=== PATIENT | male | born 1990 | race African-American/Black ===

== ENCOUNTER 2017-06-26 07:49 | Inpatient (IN) | payer MEDICAID ==
[2017-06-26] VITALS (7 sets, daily range): BP systolic 106–145; BP diastolic 56–75; PULSE 65–75; RESP 16–18; TEMP 96.7–99.2; O2SAT 98–100
[~2017-06-26] VITALS: Ht 172.7 cm; Wt 72.9 kg
[~2017-06-26 07:49] MED LIST: POLYSOL6 RIGHT EYE
[2017-06-26] MEDS ORDERED: SODIUM CHLOR 0.9% 1000 ML INJ 1,000 ML IV SCH (08:00)
[2017-06-26] MEDS ORDERED: SODIUM CHLORIDE 0.9% FLUSH 5 ML FLUSH IV FLUSH PRN (08:00)
[2017-06-26 08:37] LABS: AUTOMATED NEUTROPHIL # 2.6 TH/MM3 (1.8-7.7); BASOPHIL % 0.8 % (0.0-2.0); EOSINOPHIL # 0.1 TH/MM3 (0-0.4); EOSINOPHIL % 1.8 % (0.0-4.0); HEMATOCRIT 41.5 % (39.0-51.0); HEMO FLAGS DIFF FINAL; LYMPH % 40.5 % (9.0-44.0); LYMPHOCYTE # 2.1 TH/MM3 (1.0-4.8); MEAN CELL VOLUME 87.1 FL (80.0-100.0); MEAN CORPUSCULAR HEMOGLOBIN 28.7 PG (27.0-34.0); MEAN CORPUSCULAR HGB CONC 32.9 % (32.0-36.0); MONO % 6.9 % (0.0-8.0); PLATELET COUNT 197 TH/MM3 (150-450); RED BLOOD COUNT 4.77 MIL/MM3 (4.50-5.90); RED CELL DISTRIBUTION WIDTH 13.3 % (11.6-17.2); WHITE BLOOD COUNT 5.2 TH/MM3 (4.0-11.0)
--- NOTE | 2017-06-26 08:47 | RADRPT ---
EXAM DATE/TIME: 06/26/2017 08:23 [facility] COMPARISON: No previous studies available for comparison. INDICATIONS : Possible seizure today. RADIATION DOSE: 34.48 CTDIvol (mGy) MEDICAL HISTORY : None SURGICAL HISTORY : None. ENCOUNTER: Initial ACUITY: 1 day PAIN SCALE: 0/10 LOCATION: cranial TECHNIQUE: Multiple contiguous axial images were obtained of the head. Using automated exposure control and adj ustment of the mA and/or kV according to patient size, radiation dose was kept as low as reasonably a chievable to obtain optimal diagnostic quality images. DICOM format image data is available electro nically for review and comparison. FINDINGS: CEREBRUM: The ventricles are normal. No evidence of midline shift, mass lesion, hemorrhage or acute infarction . No extra-axial fluid collections are seen. POSTERIOR FOSSA: The cerebellum and brainstem demonstrate no abnormality. The 4th ventricle is midline. The cerebell opontine angle is unremarkable. EXTRACRANIAL: The visualized sinuses are clear. SKULL: The calvaria is intact. No evidence of skull fracture. CONCLUSION: Negative noncontrast head CT. Ramón Mckeon MD on June 26, 2017 at 8:44 Board Certified Radiologist. This report was verified electronically.
[2017-06-26 08:52] LABS: ALT (GPT) 23 U/L (12-78); ANION GAP 8 MEQ/L (5-15); AST (GOT) 33 U/L (15-37); BICARBONATE 27.5 MEQ/L (21.0-32.0); BLOOD UREA NITROGEN 7 MG/DL (7-18); CHLORIDE 105 MEQ/L (98-107); GLOMERULAR FILTRATION RATE 89 ML/MIN (>89); POTASSIUM 3.3 MEQ/L (3.5-5.1); SODIUM (NA) 140 MEQ/L (136-145)
[2017-06-26 08:54] LABS: ALKALINE PHOSPHATASE 46 U/L (45-117); TOTAL BILIRUBIN ADULT 0.8 MG/DL (0.2-1.0)
[2017-06-26] MEDS ORDERED: LORazepam 2 MG/ML VIAL ONE (09:10)
[2017-06-26] MEDS ORDERED: FOSPHENYTOIN INJ 1,500 MGPE in SODIUM CHLORIDE 0.9% INJ 100 ML IV ONE (09:15)
--- NOTE | 2017-06-26 09:43 | PD ---
HPI Chief Complaint: Seizure Time Seen by Provider: 08:00 Travel History International Travel<30 days: No Contact w/Intl Traveler<30days: No Traveled to known affect area: No History of Present Illness HPI This 18-year-old man, no history of any medical problems, presents to the emergency department for witnessed seizure. Bystanders reported to EMS the patient had 2 minute long generalized tonic-clonic shaking. EMS reports patient was postictal on their arrival. Patient alert and oriented now. Denies any history of seizures. Members going to bed last night. Denies any drug use or alcohol use. Patient takes most marijuana but no other drug use. No alcohol use. When sister has trouble with seizures. No history of head injury or neurosurgery. History Past Surgical History Surgical History: No Previous Surgery Social History Alcohol Use: Yes (OCCASIONAL) Tobacco Use: No Allergies-Medications (Allergen,Severity, Reaction): Coded Allergies: No Known Allergies (Unverified , 06/26/17) Reported Meds & Prescriptions Reported Meds & Active Scripts Active No Active Prescriptions or Reported Medications Physical Exam Narrative GENERAL: Well-appearing 26-year-old man, no acute distress. SKIN: Focused skin assessment warm/dry. HEAD: Atraumatic. Normocephalic. EYES: Pupils equal and round. No scleral icterus. No injection or drainage. ENT: No nasal bleeding or discharge. Mucous membranes pink and moist. NECK: Trachea midline. No JVD. CARDIOVASCULAR: Regular rate and rhythm. No murmur appreciated. RESPIRATORY: No accessory muscle use. Clear to auscultation. Breath sounds equal bilaterally. GASTROINTESTINAL: Abdomen soft, non-tender, nondistended. Hepatic and splenic margins not palpable. MUSCULOSKELETAL: No obvious deformities. No clubbing. No cyanosis. No edema. NEUROLOGICAL: Awake and alert. No obvious cranial nerve deficits. Motor grossly within normal limits. Normal speech. PSYCHIATRIC: Appropriate mood and affect; insight and judgment normal. Data Data Last Documented VS Vital Signs Date Time Temp Pulse Resp B/P (MAP) Pulse Ox O2 Delivery O2 Flow Rate FiO2 06/26/17 09:29 73 16 128/64 (85) 98 Room Air 06/26/17 07:56 98.0 Orders Orders Complete Blood Count With Diff (06/26/17 08:00) Comprehensive Metabolic Panel (06/26/17 08:00) Ct Brain W/O Iv Contrast(Rout) (06/26/17 08:00) Blood Glucose (06/26/17 08:00) Ecg Monitoring (06/26/17 08:00) Iv Access Insert/Monitor (06/26/17 08:00) Oximetry (06/26/17 08:00) Sodium Chloride 0.9% Flush (Ns Flush) (06/26/17 08:00) Sodium Chlor 0.9% 1000 Ml Inj (Ns 1000 M (06/26/17 08:00) Lorazepam Inj (Ativan Inj) (06/26/17 09:10) Urinalysis - C+S If Indicated (06/26/17 09:15) Drug Screen, Random Urine (06/26/17:15) Fosphenytoin Inj (Cerebyx Inj) (06/26/17 09:15) Labs Laboratory Tests Test 06/26/17 08:00 White Blood Count 5.2 TH/MM3 Red Blood Count 4.77 MIL/MM3 Hemoglobin 13.7 GM/DL Hematocrit 41.5 % Mean Corpuscular Volume 87.1 FL Mean Corpuscular Hemoglobin 28.7 PG Mean Corpuscular Hemoglobin Concent 32.9 % Red Cell Distribution Width 13.3 % Platelet Count 197 TH/MM3 Mean Platelet Volume 8.9 FL Neutrophils (%) (Auto) 50.0 % Lymphocytes (%) (Auto) 40.5 % Monocytes (%) (Auto) 6.9 % Eosinophils (%) (Auto) 1.8 % Basophils (%) (Auto) 0.8 % Neutrophils # (Auto) 2.6 TH/MM3 Lymphocytes # (Auto) 2.1 TH/MM3 Monocytes # (Auto) 0.4 TH/MM3 Eosinophils # (Auto) 0.1 TH/MM3 Basophils # (Auto) 0.0 TH/MM3 CBC Comment DIFF FINAL Differential Comment Blood Urea Nitrogen 7 MG/DL Creatinine 1.18 MG/DL Random Glucose 100 MG/DL Total Protein 6.9 GM/DL Albumin 3.8 GM/DL Calcium Level 8.1 MG/DL Alkaline Phosphatase 46 U/L Aspartate Amino Transf (AST/SGOT) 33 U/L Alanine Aminotransferase (ALT/SGPT) 23 U/L Total Bilirubin 0.8 MG/DL Sodium Level 140 MEQ/L Potassium Level 3.3 MEQ/L Chloride Level 105 MEQ/L Carbon Dioxide Level 27.5 MEQ/L Anion Gap 8 MEQ/L Estimat Glomerular Filtration Rate 89 ML/MIN [facility] Medical Decision Making Medical Screen Exam Complete: Yes Emergency Medical Condition: Yes Interpretation(s) LABS: CBC unremarkable. CMP unremarkable. CT head negative. Differential Diagnosis Seizure, head injury, bleed, epilepsy, other Narrative Course Medical decision making Is a 26-year-old man who presents to the emergency department with episode of seizure. Initial workups unremarkable. While in the ED he had second seizure lasting about a minute and a half. Twin sister has seizures. He was loaded with fosphenytoin. We'll plan on admission. Diagnosis Primary Impression: Seizure Admitting Information Admitting Physician Requests: Admit Scripts No Active Prescriptions or Reported Meds Ryan Hairston MD Jun 26, 2017 09:43
[2017-06-26] MEDS ORDERED: ONDANSETRON HCL 4 MG/2 ML VIAL IVP PRN (09:45)
[2017-06-26] MEDS ORDERED: NALOXONE HCL 0.4 MG/ML AMP IV PRN (09:45)
[2017-06-26] MEDS ORDERED: LORazepam 2 MG/ML VIAL IV PRN (09:45)
[2017-06-26] MEDS ORDERED: ACETAMINOPHEN 325 MG TAB PO PRN (09:45)
[2017-06-26 09:57] LABS: BLOOD, URINE NEG (NEG); COMMENT (UR) CULT NOT INDICATED; CULTURE IF INDICATED CULT NOT INDICATED; GLUCOSE,URINE NEG (NEG); KETONE, URINE TRACE mg/dL (NEG); MUCUS URINE FEW /lpf (OCC); NITRITE,URINE NEG (NEG); URINE COLOR YELLOW (YELLW/STRAW)
--- NOTE | 2017-06-26 10:42 | HHI.HP ---
[facility] Primary Care Physician Unknown Admission Diagnosis new onset seizures Diagnoses: (1) Seizure Diagnosis: Principal Chief Complaint: Witnessed seziure Travel History International Travel<30 Days: No Contact w/Intl Traveler <30 Da: No Traveled to Known Affected Are: No History of Present Illness Written by Linda Galarza, acting as scribe for Dr. Garsia on 06/26/17 at 10:41. Mr. Brito is a 26-year-old male patient with a no known medical history who presented to the ED with a witnessed seizure. Per records witnesses said it lasted 2 minutes, tonic-clinic in nature and patient presented here in a postictal state. Was given IV Cerebyx and IV Ativan in the ED. Per bedside RN patient supposedly had another witnessed generalized seizure and was administered additional Ativan. Patient seen and examined in ED, lethargic, awakens to voice and falls right back to sleep. Patient is noncompliant with assessment and exam. Poor historian and difficult to obtain any valuable medical history information. Neurology has been consulted and will follow as well. Review of Systems ROS Limitations: Uncooperative Past Family Social History Past Medical History Unable to obtain Past Surgical History Unable to obtain Reported Medications Reported Meds & Active Scripts Active No Active Prescriptions or Reported Medications Allergies: Coded Allergies: No Known Allergies (Unverified , 06/26/17) Active Ordered Medications Current Medications Medications (Trade) Dose Ordered Sig/Nancy Route Start Time Stop Time Status Last Admin (NS Flush) 2 ml UNSCH PRN IV FLUSH 06/26/17 08:00 (Tylenol) 650 mg Q4H PRN PO 06/26/17 09:45 (Zofran Inj) 4 mg Q6H PRN IVP 06/26/17 09:45 (Narcan Inj) 0.4 mg UNSCH PRN IV 06/26/17 09:45 (Ativan Inj) 2 mg UNSCH PRN IV 06/26/17 09:45 (Dilantin) 100 mg Q8H PO 06/26/17 11:00 06/26/17 12:41 Family History Unable to obtain Social History Unable to obtain Physical Exam Vital Signs Vital Signs Date Time Temp Pulse Resp B/P (MAP) Pulse Ox O2 Delivery O2 Flow Rate FiO2 06/26/17 09:29 73 16 128/64 (85) 98 Room Air 06/26/17 08:14 100 06/26/17 07:59 80 100 06/26/17 07:56 98.0 73 18 145/75 (98) 100 Physical Exam GENERAL: This is a well-nourished, well-developed male patient, in no apparent distress, somnolent and uncooperative. Postictal and post Ativan SKIN: No rashes, ecchymoses or lesions. Cool and dry. HEAD: Atraumatic. Normocephalic. EYES: Pupils equal round and reactive. Uncooperative with EOM exam. No scleral icterus. No injection or drainage. ENT: Nose without bleeding. Airway patent. NECK: Trachea midline. No JVD. Supple. CARDIOVASCULAR: Regular rate and rhythm without murmurs, gallops, or rubs. RESPIRATORY: Clear to auscultation. Breath sounds equal bilaterally. No wheezes , rales, or rhonchi. GASTROINTESTINAL: Abdomen soft, non-tender, nondistended. No guarding. MUSCULOSKELETAL: Extremities without clubbing, cyanosis, or edema. No joint tenderness, effusion, or edema noted. NEUROLOGICAL: Somnolent. Motor and sensory grossly within normal limits. Five out of 5 muscle strength in all muscle groups. Laboratory Laboratory Tests Test 06/26/17 08:00 06/26/17 09:30 White Blood Count 5.2 Red Blood Count 4.77 Hemoglobin 13.7 Hematocrit 41.5 Mean Corpuscular Volume 87.1 Mean Corpuscular Hemoglobin 28.7 Mean Corpuscular Hemoglobin Concent 32.9 Red Cell Distribution Width 13.3 Platelet Count 197 Mean Platelet Volume 8.9 Neutrophils (%) (Auto) 50.0 Lymphocytes (%) (Auto) 40.5 Monocytes (%) (Auto) 6.9 Eosinophils (%) (Auto) 1.8 Basophils (%) (Auto) 0.8 Neutrophils # (Auto) 2.6 Lymphocytes # (Auto) 2.1 Monocytes # (Auto) 0.4 Eosinophils # (Auto) 0.1 Basophils # (Auto) 0.0 CBC Comment DIFF FINAL Differential Comment Blood Urea Nitrogen 7 Creatinine 1.18 Random Glucose 100 Total Protein 6.9 Albumin 3.8 Calcium Level 8.1 Alkaline Phosphatase 46 Aspartate Amino Transf (AST/SGOT) 33 Alanine Aminotransferase (ALT/SGPT) 23 Total Bilirubin 0.8 Sodium Level 140 Potassium Level 3.3 Chloride Level 105 Carbon Dioxide Level 27.5 Anion Gap 8 Estimat Glomerular Filtration Rate 89 Urine Color YELLOW Urine Turbidity CLEAR Urine pH 6.0 Urine Specific [place] 1.011 Urine Protein NEG Urine Glucose (UA) NEG Urine Ketones TRACE Urine Occult Blood NEG Urine Nitrite NEG Urine Bilirubin NEG Urine Urobilinogen LESS THAN 2.0 Urine Leukocyte Esterase NEG Urine RBC LESS THAN 1 Urine WBC LESS THAN 1 Urine Mucus FEW Microscopic Urinalysis Comment CULT NOT INDICATED Urine Opiates Screen NEG Urine Barbiturates Screen NEG Urine Amphetamines Screen NEG Urine Benzodiazepines Screen NEG Urine Cocaine Screen NEG Urine Cannabinoids Screen POS Result Diagram: 06/26/17 0800 06/26/17 0800 Imaging Last Impressions Head CT 06/26/17 0800 Signed Impressions: Service Date/Time: Monday, June 26, 2017 08:23 - CONCLUSION: Negative noncontrast head CT. Ramón Mckeon MD Brain MRI 06/26/17 0000 Signed Impressions: Service Date/Time: Monday, June 26, 2017 11:27 - CONCLUSION: Examination quality is severely degraded by motion artifact. No acute finding is identified and there is no abnormality to explain the patient's seizures. If condition persists, suggest followup imaging when patient is better able to cooperate with the exam. MD Radha Ching VTE Risk Assessment Udayrini VTE Risk Assessment: No/Low Risk (score <= 1) Caprini Risk Assessment Model Point Value = 1 Point Value = 2 Point Value = 3 Point Value = 5 Age 41-60 Minor surgery BMI > 25 kg/m2 Swollen legs Varicose veins or History of unexplained or recurrent spontaneous Oral contraceptives or hormone replacement Sepsis (< 1 month) Serious lung disease, including pneumonia (< 1 month) Abnormal pulmonary function Acute myocardial infarction Congestive heart failure (< 1 month) History of inflammatory bowel disease Medical patient at bed rest Age 61-74 Arthroscopic surgery Major open surgery (> 45 min) Laparoscopic surgery (> 45 min) Malignancy Confined to bed (> 72 hours) Immobilizing plaster cast Central venous access Age >= 75 History of VTE Family history of VTE Factor V Leiden Prothrombin [id number] Lupus anticoagulant Anticardiolipin antibodies Elevated serum homocysteine Heparin-induced thrombocytopenia Other congenital or acquired thrombophilia Stroke (< 1 month) Elective arthroplasty Hip, pelvis, or leg fracture Acute spinal cord injury (< 1 month) Prophylaxis Regimen Total Risk Factor Score Risk Level Prophylaxis Regimen 0-1 Low Early ambulation 2 Moderate Order ONE of the following: *Sequential Compression Device (SCD) *Heparin 5000 units SQ BID 3-4 Higher Order ONE of the following medications: *Heparin 5000 units SQ TID *Enoxaparin/Lovenox 40 mg SQ daily (WT < 150 kg, CrCl > 30 mL/min) *Enoxaparin/Lovenox 30 mg SQ daily (WT < 150 kg, CrCl > 10-29 mL/min) *Enoxaparin/Lovenox 30 mg SQ BID (WT < 150 kg, CrCl > 30 mL/min) AND/OR *Sequential Compression Device (SCD) 5 or more Highest Order ONE of the following medications: *Heparin 5000 units SQ TID (Preferred with Epidurals) *Enoxaparin/Lovenox 40 mg SQ daily (WT < 150 kg, CrCl > 30 mL/min) *Enoxaparin/Lovenox 30 mg SQ daily (WT < 150 kg, CrCl > 10-29 mL/min) *Enoxaparin/Lovenox 30 mg SQ BID (WT < 150 kg, CrCl > 30 mL/min) AND *Sequential Compression Device (SCD) Assessment and Plan Assessment and Plan Mr. Brito is a 26-year-old male patient with a no known medical history who presented to the ED with a witnessed seizure. Per records witnesses said it lasted 2 minutes, tonic-clinic in nature and patient presented here in a postictal state. New onset Seizure, multiple episodes risk for status epilepticus. - Head CT reviewed and negative. MRI brain reviewed showing no acute abnormality. - Neurology consulted and has seen patient, appreciate input and recommendations. EEG ordered, follow. Will check magnesium level, WNL. Started patient on Dilantin 100 mg PO q8hr. - Ativan IV PRN for seizure. Cerebyx IV and Ativan IV given in ED. - Seizure precautions. - Continue neuro checks. Hypokalemia: K 3.3 Will replace. BMP in am, follow. DVT Prophylaxis: SCDs. Discussed Condition With This note was transcribed by beth [Linda will obtain]. I, Dr. Edgar Garsia personally performed the history, physical exam, and medical decision making; and confirmed the accuracy of the information in the transcribed note. Authenticated by Dr. Edgar Garsia on 06/26/17 at 10:47. Physician Certification 2 Midnight Certification Type: Admission for Inpatient Services Order for Inpatient Services The services are ordered in accordance with Medicare regulations or non- Medicare payer requirements, as applicable. In the case of services not specified as inpatient-only, they are appropriately provided as inpatient services in accordance with the 2-midnight benchmark. Estimated LOS (days): 2 2 days is the estimated time the patient will need to remain in the hospital, assuming treatment plan goals are met and no additional complications. Post-Hospital Plan: Home Linda Galarza Jun 26, 2017 10:42 Edgar Garsia MD Jun 26, 2017 10:48
--- NOTE | 2017-06-26 10:49 | PD.CONS ---
History of Present Illness Service Neurology Consult Requested By er Reason for Consult sz Primary Care Physician Unknown History of Present Illness 18-year-old man admitted for witnessed seizure. Bystanders reported to EMS the patient had 2 minute long generalized tonic-clonic shaking. EMS reports patient was postictal on their arrival. Denies any history of seizures. Denies any drug use. No alcohol use. No sleep deprivation. When sister has trouble with seizures. No history of head injury or neurosurgery. recieved iv ativan 2mg qd, iv cerebryx. no aura, no metallic taste. glucose 100. ct brain naicp. uds + mj family hx: sister with seizures in childhood History Past Surgical History Surgical History: No Previous Surgery Social History Alcohol Use: Yes (OCCASIONAL) Tobacco Use: No Allergies-Medications (Allergen,Severity, Reaction): Coded Allergies: No Known Allergies (Unverified , 06/26/17) Reported Meds & Prescriptions Reported Meds & Active Scripts Active No Active Prescriptions or Reported Medications Review of Systems All other ROS: ROS reviewed as documented in chart Past Family Social History Allergies: Coded Allergies: No Known Allergies (Unverified , 06/26/17) Active Ordered Medications Current Medications Medications (Trade) Dose Ordered Sig/Nancy Route Start Time Stop Time Status Last Admin (NS Flush) 2 ml UNSCH PRN IV FLUSH 06/26/17 08:00 (Tylenol) 650 mg Q4H PRN PO 06/26/17 09:45 (Zofran Inj) 4 mg Q6H PRN IVP 06/26/17 09:45 (Narcan Inj) 0.4 mg UNSCH PRN IV 06/26/17 09:45 (Ativan Inj) 2 mg UNSCH PRN IV 06/26/17 09:45 Exam I&O / VS 06/26/17 06/26/17 06/27/17 15:00 23:00 07:00 Intake Total 1130 ml Output Total 400 ml Balance 730 ml Intake IV Total 1130 ml Output Urine Total 400 ml # Voids 1 Vital Signs Date Time Temp Pulse Resp B/P (MAP) Pulse Ox O2 Delivery O2 Flow Rate FiO2 06/26/17 09:29 73 16 128/64 (85) 98 Room Air 06/26/17 08:14 100 06/26/17 07:59 80 100 06/26/17 07:56 98.0 73 18 145/75 (98) 100 General: No acute distress Eye: EOMI Respiratory: Non-labored respirations Neurologic: Normal motor, No focal defects, CN II-XII intact, Normal DTR's Psychiatric: Cooperative Exam Comments drowsy, easily arousable, follows, ox 3, eomi, ou 3-2mm, face sym, no foal weakness, neck supple, no clonus, planterflexor Review/Management Diagnosis/Plan: (1) Seizure ICD Codes: R56.9 - Unspecified convulsions Status: Acute Plan: first time + family hx rec eeg/mra brain dilantin check mag level 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
[2017-06-26] MEDS ORDERED: GADODIAMIDE PF 287 MG/ML 20 ML VIAL (for RAD MRI) IVCONTRAST ONE (11:45)
[2017-06-26] MEDS: PHENYTOIN SODIUM 100 MG CAP PO SCH ×2 (12:41→20:16)
--- NOTE | 2017-06-26 13:15 | RADRPT ---
EXAM DATE/TIME: 06/26/2017 11:27 [facility] COMPARISON: CT BRAIN W/O CONTRAST, June 26, 2017, 8:23. INDICATIONS : Seizures. CONTRAST: 14 cc Omniscan (gadodiamide) IV MEDICAL HISTORY : None. SURGICAL HISTORY : None. ENCOUNTER: Initial ACUITY: 1 day PAIN SCORE: 0/10 LOCATION: cranial TECHNIQUE: Multiplanar, multisequence MRI of the brain was performed both prior to and following the administrat ion of paramagnetic contrast. FINDINGS: There is severe motion artifact. CEREBRUM: The ventricles are normal for age. No evidence of midline shift, mass lesion, hemorrhage or acute in farction. No extraaxial fluid collections are seen. The pituitary gland and suprasellar cistern are normal in configuration. Hippocampi are symmetric. WHITE MATTER: No significant signal abnormalities are seen in the white matter. POSTERIOR FOSSA: The cerebellum and brainstem demonstrate no acute finding. The 4th ventricle is midline. The cerebel lopontine angle is unremarkable. The cerebellar tonsils are normal in position. DIFFUSION IMAGING: No focal areas of restricted diffusion are seen. No evidence of acute infarction. EXTRACRANIAL: The visualized portions of the orbits and paranasal sinuses are unremarkable. POST-CONTRAST: No abnormal areas of parenchymal or dural enhancement. No evidence of blood-brain barrier breakdown. CONCLUSION: Examination quality is severely degraded by motion artifact. No acute finding is identified and there is no abnormality to explain the patient's seizures. If condition persists, suggest followup imaging when patient is better able to cooperate with the exam. Ramón Mckeon MD on June 26, 2017 at 13:12 Board Certified Radiologist. This report was verified electronically.
[2017-06-26] MEDS ORDERED: POTASSIUM CHLOR 20 MEQ PREMIX 100 ML IV ONE (14:15)
--- NOTE | 2017-06-26 19:34 | MG ---
cc: NOEL POP MD Lab No: [id number] Date: 06/26/2017 Age: 26 Sex: M Race: DATE OF 1990 HISTORY 26-year-old, history of new onset seizure activity. DESCRIPTION Posterior rhythm demonstrates 8-9 Hz delta activity, 20-50 microvolts. Low amplitude beta in the frontal channels. Good anterior-posterior gradient. Progressive slowing suggestive of drowsy state followed by stage I and stage II sleep and the appearance of spindle activity. Slight sharp transient C3 EPOCH 22. Good increment of posterior rhythm during arousals. K-complex is appreciated. Appear to be going in and out of sleep. Reduced driving with photic stimulation. Single-lead EKG showing sinus rhythm. INTERPRETATION Overall normal awake sleep EEG. No epileptic activity appreciated. Clinical correlation. Noel Pop MD MG/DT /7:14 PM /7:22 PM
[2017-06-26] MEDS ORDERED: POTASSIUM CHLORIDE 25 MEQ EFFERVESCENT TAB PO ONE (20:00)
[2017-06-27 03:00] VITALS: BP 106/59; PULSE 60; RESP 18; TEMP 98.9; O2SAT 97
[2017-06-27] MEDS: PHENYTOIN SODIUM 100 MG CAP PO SCH ×3 (03:35→11:21)
[2017-06-27 05:40] LABS: POTASSIUM 3.5 MEQ/L (3.5-5.1)
[2017-06-27 08:02] VITALS: BP 116/66; PULSE 93; RESP 16; TEMP 98.5; O2SAT 98
[2017-06-27 08:38] VITALS: PULSE 65
[2017-06-27 09:18] LABS: AUTOMATED NEUTROPHIL # 6.2 TH/MM3 (1.8-7.7); BASOPHIL % 0.5 % (0.0-2.0); EOSINOPHIL % 0.2 % (0.0-4.0); HEMATOCRIT 42.4 % (39.0-51.0); HEMO FLAGS DIFF FINAL; LYMPH % 21.3 % (9.0-44.0); LYMPHOCYTE # 1.8 TH/MM3 (1.0-4.8); MEAN CELL VOLUME 87.6 FL (80.0-100.0); MEAN CORPUSCULAR HGB CONC 33.1 % (32.0-36.0); MONO % 6.3 % (0.0-8.0); NEUT % 71.7 % (16.0-70.0); PLATELET COUNT 200 TH/MM3 (150-450); RED BLOOD COUNT 4.84 MIL/MM3 (4.50-5.90); RED CELL DISTRIBUTION WIDTH 12.9 % (11.6-17.2); WHITE BLOOD COUNT 8.6 TH/MM3 (4.0-11.0)
[2017-06-27] MEDS ORDERED: INFLUENZA VIRUS VACCINE (QUADRIVALENT) 0.5 ML SYR IM ONE (10:00)
--- NOTE | 2017-06-27 11:15 | HHI.PR ---
Subjective Remarks Written by Kinga Galarza, acting as scribe for Dr. Garsia on 06/27/17 at 11:05. Follow up seizure. Patient seen and examined today. Lying in bed sleeping, awakens to voice, pleasant, alert and oriented. States he does not remember having a seizure. Denies any prior seizures in the past. Does state that his twin sister had seizures growing up in high school with unknown cause. Patient states he feels well today. Woke up with a headache that is now resolved. Denies any blurry vision. Denies any dizziness, nausea. Objective Vitals Vital Signs Date Time Temp Pulse Resp B/P (MAP) Pulse Ox O2 Delivery O2 Flow Rate FiO2 06/27/17 08:38 65 06/27/17 08:02 98.5 93 16 116/66 (83) 98 06/27/17 03:00 98.9 60 18 106/59 (75) 97 06/26/17 23:11 98.7 75 18 120/56 (77) 98 06/26/17 19:16 99.2 72 18 106/57 (73) 99 06/26/17 18:56 75 06/26/17 15:33 96.7 65 18 112/60 (77) 99 I/O 06/26/17 06/26/17 06/26/17 06/27/17 06/27/17 06/27/17 07:00 15:00 23:00 07:00 15:00 23:00 Intake Total 1130 ml 240 ml 480 ml Output Total 400 ml 450 ml Balance 730 ml -210 ml 480 ml Intake Oral 240 ml 480 ml IV Total 1130 ml Output Urine Total 400 ml 450 ml # Voids 1 3 3 # Bowel Movements 0 0 Result Diagram: 06/27/17 0503 06/27/17 0503 Imaging Last Impressions Head CT 06/26/17 0800 Signed Impressions: Service Date/Time: Monday, June 26, 2017 08:23 - CONCLUSION: Negative noncontrast head CT. Ramón Mckeon MD Brain MRI 06/26/17 0000 Signed Impressions: Service Date/Time: Monday, June 26, 2017 11:27 - CONCLUSION: Examination quality is severely degraded by motion artifact. No acute finding is identified and there is no abnormality to explain the patient's seizures. If condition persists, suggest followup imaging when patient is better able to cooperate with the exam. Ramón Mckeon MD Objective Remarks GENERAL: This is a well-nourished, well-developed male patient, in no apparent distress, awake and alert. Pleasant. SKIN: No rashes, ecchymoses or lesions. Warm and dry. HEAD: Atraumatic. Normocephalic. EYES: Pupils equal round and reactive. EOMs intact. No scleral icterus. No injection or drainage. ENT: Nose without bleeding. Airway patent. NECK: Trachea midline. No JVD. Supple. CARDIOVASCULAR: Regular rate and rhythm without murmurs, gallops, or rubs. RESPIRATORY: Clear to auscultation. Breath sounds equal bilaterally. No wheezes , rales, or rhonchi. GASTROINTESTINAL: Abdomen soft, non-tender, nondistended. No guarding. MUSCULOSKELETAL: Extremities without clubbing, cyanosis, or edema. No joint tenderness, effusion, or edema noted. NEUROLOGICAL: Awake and alert. Normal speech. Motor and sensory grossly within normal limits. Five out of 5 muscle strength in all muscle groups. A/P Problem List: (1) Seizure ICD Code: R56.9 - Unspecified convulsions Status: Acute Assessment and Plan Mr. Brito is a 26-year-old male patient with a no known medical history who presented to the ED with a witnessed seizure. Per records witnesses said it lasted 2 minutes, tonic-clinic in nature and patient presented here in a postictal state. 06/27: Patient seen and examined, awake and alert. Follows all commands. Denies any new acute events overnight, states he feels much better. Headache resolved. Nausea resolved. Dilantin level 25.4 today, held 1100 dose for now. Await neurology recommendations for adjustment in dose. Hypokalemia resolved today, BMP reviewed. Labs unremarkable today. New onset Seizure, multiple episodes risk for status epilepticus. - Head CT reviewed and negative. MRI brain reviewed showing no acute abnormality. - Neurology following, appreciate input and recommendations. EEG negative for seizure. On Dilantin 100 mg PO q8hr. - Ativan IV PRN for seizure. Cerebyx IV and Ativan IV given in ED. - Seizure precautions. - Continue neuro checks. Hypokalemia: K 3.3. Status post replacement, reviewed BMP today, 3.5. DVT Prophylaxis: SCDs. Discharge Planning Patient left AMA despite neurology and hospitalist team informed him to stay Condition on discharge: Guarded due to multiple episodes of seizures Regular Diet as tolerated Ad Tanya activity: Patient has seizure precaution, he should not drive, swim or operate heavy machinery. Rx written: No meds provided patient left AMA Follow-up with primary care physician and neurology ANTWAN Attending Statement This note was transcribed by scribe [[email or web address]]. I, Dr. Edgar Garsia personally performed the history, physical exam, and medical decision making; and confirmed the accuracy of the information in the transcribed note. Authenticated by Dr. Edgar Garsia on 06/27/17 at 11:18. Kinga Galarza Jun 27, 2017 11:15 Edgar Garsia MD Jun 27, 2017 11:18
[2017-06-27 11:47] VITALS: BP 122/58; PULSE 77; RESP 16; TEMP 98.5; O2SAT 100
--- NOTE | 2017-06-27 14:04 | HHI.PR ---
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 saw him having gtc out of sleep he wants to go home No headache No chest pain No dyspnea Active Medications Current Medications Medications (Trade) Dose Ordered Sig/Nancy Route Start Time Stop Time Status Last Admin (NS Flush) 2 ml UNSCH PRN IV FLUSH 06/26/17 08:00 (Tylenol) 650 mg Q4H PRN PO 06/26/17 09:45 06/27/17 13:51 (Zofran Inj) 4 mg Q6H PRN IVP 06/26/17 09:45 (Narcan Inj) 0.4 mg UNSCH PRN IV 06/26/17 09:45 (Ativan Inj) 2 mg UNSCH PRN IV 06/26/17 09:45 (Dilantin) 100 mg Q8H PO 06/26/17 11:00 06/27/17 11:00 Allergies Allergies Coded Allergies No Known Allergies (Unverified06/26/17) Review of Systems All other ROS: ROS reviewed as documented in chart Exam I&O / VS Vital Signs Date Time Temp Pulse Resp B/P (MAP) Pulse Ox O2 Delivery O2 Flow Rate FiO2 06/27/17 11:47 98.5 77 16 122/58 (79) 100 06/27/17 08:38 65 06/27/17 08:30 21 06/27/17 08:02 98.5 93 16 116/66 (83) 98 06/27/17 03:00 98.9 60 18 106/59 (75) 97 06/26/17 23:11 98.7 75 18 120/56 (77) 98 06/26/17 19:16 99.2 72 18 106/57 (73) 99 06/26/17 18:56 75 06/26/17 15:33 96.7 65 18 112/60 (77) 99 General: No acute distress Eye: EOMI Respiratory: Non-labored respirations Neurologic: Alert, Oriented, Normal motor, No focal defects, CN II-XII intact, Normal DTR's Psychiatric: Cooperative, Appropriate mood & affect Objective Micro and Labs Laboratory Tests Test 06/27/17 05:03 White Blood Count 8.6 Red Blood Count 4.84 Hemoglobin 14.0 Hematocrit 42.4 Mean Corpuscular Volume 87.6 Mean Corpuscular Hemoglobin 29.0 Mean Corpuscular Hemoglobin Concent 33.1 Red Cell Distribution Width 12.9 Platelet Count 200 Mean Platelet Volume 9.0 Neutrophils (%) (Auto) 71.7 Lymphocytes (%) (Auto) 21.3 Monocytes (%) (Auto) 6.3 Eosinophils (%) (Auto) 0.2 Basophils (%) (Auto) 0.5 Neutrophils # (Auto) 6.2 Lymphocytes # (Auto) 1.8 Monocytes # (Auto) 0.5 Eosinophils # (Auto) 0.0 Basophils # (Auto) 0.0 CBC Comment DIFF FINAL Differential Comment Blood Urea Nitrogen 6 Creatinine 1.04 Random Glucose 74 Calcium Level 8.9 Sodium Level 137 Potassium Level 3.5 Chloride Level 103 Carbon Dioxide Level 26.0 Anion Gap 8 Estimat Glomerular Filtration Rate 103 Phenytoin (Dilantin) Level 25.4 Jamal Roblero MD Jun 27, 2017 14:04
[2017-06-29] MEDS ORDERED: PHENYTOIN SODIUM 100 MG CAP PO SCH (09:00)
== END 2017-06-27 16:05 | disposition left against medical advice (07) | DRG 101 ==
LOC: NEPC 07:49 → NEDA 09:44 → INTOOBSV 09:44 → N06B 10:46 → OBSVTOIN 16:59
PROVIDERS: ADMIT Hospitalist; ATTEND Hospitalist
DX: R56.9 Unspecified convulsions (principal); E87.6 Hypokalemia
CPT/HCPCS: 70450; 70553; 80048; 80053; 80185; 80307; 81001; 82948; 83735; 85025; 90686; 95819; 96361; 96374; 96375; A9579; J2060; J3480; J7030; Q2009; Q2038

== ENCOUNTER 2017-11-11 04:53 | Emergency (ER) | payer MEDICAID, OTHER ==
[~2017-11-11] VITALS: Ht 172.7 cm; Wt 70.5 kg
[2017-11-11 05:10] VITALS: BP 100/60; PULSE 96; RESP 18; TEMP 98.5; O2SAT 97
[2017-11-11] MEDS ORDERED: LEVE500 PO (05:10)
--- NOTE | 2017-11-11 05:14 | PD ---
HPI Chief Complaint: Medical Clearance Time Seen by Provider: 05:00 Travel History International Travel<30 days: No Contact w/Intl Traveler<30days: No Traveled to known affect area: No History of Present Illness HPI 27-year-old male presents to the emergency department by EMS and police custody for evaluation of complaint of headache and low back pain. According to the patient just prior to arrival to the emergency department he did fall and hit his head without loss of consciousness or witnessed seizure activity. Patient does have a history of seizure disorder diagnosed June 2017. Patient takes Keppra twice daily. Patient states he's been taking his medication but may not take it at the exact time each day but has been taking 2 pills a day. Patient admits to cannabinoids use but denies alcohol use. Patient menses custody reportedly was running from police and according to [employer] coxswain at bedside did fall twice. Patient states he hit his head. Patient denies neck pain midscapular pain arm or leg numbness tingling or weakness. No chest pain no palpitations no shortness of breath no abdominal pain patient states he did experience some nausea after hitting his head but does not have nausea at this time. No report of lower extremity numbness tingling weakness better or bowel dysfunction or saddle anesthesia. Patient's had no vomiting. Patient denies other injury. PFSH Past Medical History Narrative Medical Seizure disorder; cannabis use; nursing notes reviewed Diminished Hearing: No Musculoskeletal: Yes (RIGHT CLAVICLE; R KNEE FX) Social History Alcohol Use: Yes (OCCASIONAL) Tobacco Use: No Substance Use: Yes (smokes marijuana 3x a day) Allergies-Medications (Allergen,Severity, Reaction): Coded Allergies: No Known Allergies (Unverified Adverse Reaction, Unknown, 11/11/17) Reported Meds & Prescriptions Reported Meds & Active Scripts Active Reported Keppra (Levetiracetam) 500 Mg Tab 500 Mg PO BID Narrative Medication keppra Review of Systems Except as stated in HPI: all other systems reviewed are Neg General / Constitutional: No: Fever, Chills Eyes: No: Visual changes HENT: Positive: Headaches, No: Neck Stiffness, Neck Pain Cardiovascular: No: Chest Pain or Discomfort Respiratory: No: Shortness of Breath Gastrointestinal: Positive: Nausea, No: Vomiting, Abdominal Pain Genitourinary: No: Flank Pain Musculoskeletal: Positive: Pain (right shoulder; lower back), No: Myalgias, Arthralgias Skin: No Rash Neurologic: No: Weakness, Seizures Psychiatric: No: Anxiety Hematologic/Lymphatic: No: Lymph Node Enlargement Physical Exam Narrative GENERAL: Well-developed well-nourished male in no acute distress no respiratory distress; GCS 15 SKIN: Warm and dry. HEAD: Atraumatic. Normocephalic. Mild tenderness to direct palpation along the right parietal scalp without soft tissue swelling or bony step-off no abrasion or lacerations identified EYES: Pupils equal and round. Extraocular muscles are intact. No scleral icterus. No injection or drainage. ENT: No nasal bleeding or discharge. Mucous membranes pink and moist. Airway is patent. No hemotympanum. NECK: Trachea midline. No JVD. No midline tenderness to direct palpation along the cervical spine and no bony step-off. CARDIOVASCULAR: Regular rate and rhythm. Chest wall: Nontender to palpation. RESPIRATORY: No accessory muscle use. Clear to auscultation. Breath sounds equal bilaterally. GASTROINTESTINAL: Abdomen soft, non-tender, nondistended. Hepatic and splenic margins not palpable. MUSCULOSKELETAL: Extremities without clubbing, cyanosis, or edema. No obvious deformities. Distally bilateral upper extremities are neurovascular tendon intact. Mild tenderness to direct palpation along the lower lumbar spine no bony step-off no point tenderness no flank tenderness. NEUROLOGICAL: Awake and alert. GCS 15. No obvious cranial nerve deficits. Motor grossly within normal limits. Five out of 5 muscle strength in the arms and legs. Normal speech. PSYCHIATRIC: Appropriate mood and affect; insight and judgment normal. Data Data Last Documented VS Vital Signs Date Time Temp Pulse Resp B/P (MAP) Pulse Ox O2 Delivery O2 Flow Rate FiO2 11/11/17 05:46 89 18 148/60 (89) 98 Room Air 11/11/17 05:[address] Brain W/O Iv Contrast(Rout) (11/11/17 ) Shoulder, Complete (>2vws) (11/11/17 ) Spine, Lumbar - Ltd (Ap & Lat) (11/11/17 ) Levetiracetam (Keppra) (11/11/17 05:15) MDM Medical Decision Making Medical Screen Exam Complete: Yes Emergency Medical Condition: Yes Medical Record Reviewed: Yes Interpretation(s) Last Impressions Shoulder X-Ray 11/11/17 0000 Signed Impressions: Service Date/Time: Saturday, November 11, 2017 05:20 - CONCLUSION: Unremarkable examination of the right shoulder. Ramón Black MD Lumbar Spine X-Ray 11/11/17 0000 Signed Impressions: Service Date/Time: Saturday, November 11, 2017 05:20 - CONCLUSION: Unremarkable limited examination of the lumbar spine. Ramón Black MD Head CT 11/11/17 0000 Signed Impressions: Service Date/Time: Saturday, November 11, 2017 05:35 - CONCLUSION: No acute disease. Ramón Black MD Vital Signs Date Time Temp Pulse Resp B/P (MAP) Pulse Ox O2 Delivery O2 Flow Rate FiO2 11/11/17 05:46 89 18 148/60 (89) 98 Room Air 11/11/17 05:13 96 18 11/11/17 05:10 98.5 96 18 100/60 (73) 97 Differential Diagnosis Minor closed head injury, ICH, skull fracture, shoulder sprain strain contusion rotator cuff injury AC separation fracture lumbar spine contusion DDD HNP Narrative Course Imaging studies ordered along with morning dose of Keppra Imaging studies resulted no acute bony abnormality or intracranial pathology; patient given one-time dose of ibuprofen; patient stable to be discharged in the custody of the police Diagnosis Primary Impression: Minor closed head injury Additional Impressions: Contusion of right shoulder Qualified Codes: S40.011A - Contusion of right shoulder, initial encounter Acute lumbar myofascial strain Qualified Codes: S39.012A - Strain of muscle, fascia and tendon of lower back , initial encounter History of seizure Referrals: Primary Care Physician call for appointment Patient Instructions: General Instructions Additional Instructions: Follow head injury precautions 24 hours May take acetaminophen or ibuprofen per package instructions as needed for minor discomfort or for fever 100.4F or greater Continue your Keppra prescription as directed do not miss any dosages of your antiseizure medicine Return to the emergency department for any concerns or change in condition Med/Other Pt SpecificInfo: No Change to Meds Disposition: [address] LAW ENFORCEMNT Condition: Stable Izzy Michel MD Nov 11, 2017 05:14
[2017-11-11] MEDS ORDERED: levETIRAcetam 500 MG TAB PO ONE (05:15)
[2017-11-11 05:46] VITALS: BP 148/60; PULSE 89; RESP 18; O2SAT 98
--- NOTE | 2017-11-11 06:07 | RADRPT ---
EXAM DATE/TIME: 11/11/2017 05:20 [facility] COMPARISON: No previous studies available for comparison. INDICATIONS : Right shoulder pain post fall today MEDICAL HISTORY : None. SURGICAL HISTORY : None. ENCOUNTER: Initial ACUITY: 1 day PAIN SCORE: 5/10 LOCATION: Right entire shoulder FINDINGS: Multiple view examination of the right shoulder demonstrates no evidence of fracture or dislocation. The glenohumeral and acromioclavicular joints are maintained. There is normal range of motion betwe en internal and external rotation. Bony mineralization is normal. CONCLUSION: Unremarkable examination of the right shoulder. Ramón Black MD on November 11, 2017 at 6:05 Board Certified Radiologist. This report was verified electronically.
--- NOTE | 2017-11-11 06:07 | RADRPT ---
EXAM DATE/TIME: 11/11/2017 05:20 [facility] COMPARISON: No previous studies available for comparison. INDICATIONS : Lower back pain post fall today MEDICAL HISTORY : None. SURGICAL HISTORY : None. ENCOUNTER: Initial ACUITY: 1 day PAIN SCORE: 5/10 LOCATION: Lumbar spine FINDINGS: Two view examination was performed. There are five non-rib bearing vertebral bodies. The vertebral bodies are in normal alignment without evidence of subluxation or scoliosis. The disc spaces are karmen ntained. The pedicles are intact. Bony mineralization is normal. No fracture is identified. CONCLUSION: Unremarkable limited examination of the lumbar spine. Ramón Black MD on November 11, 2017 at 6:06 Board Certified Radiologist. This report was verified electronically.
--- NOTE | 2017-11-11 06:15 | RADRPT ---
EXAM DATE/TIME: 11/11/2017 05:35 [facility] COMPARISON: CT BRAIN W/O CONTRAST, June 26, 2017, 8:23. INDICATIONS : Possible trauma. Headache. RADIATION DOSE: 58.39 CTDIvol (mGy) MEDICAL HISTORY : Seizures. SURGICAL HISTORY : None. ENCOUNTER: Initial ACUITY: 1 day PAIN SCALE: 6/10 LOCATION: cranial TECHNIQUE: Multiple contiguous axial images were obtained of the head. Using automated exposure control and adj ustment of the mA and/or kV according to patient size, radiation dose was kept as low as reasonably a chievable to obtain optimal diagnostic quality images. DICOM format image data is available electro nically for review and comparison. FINDINGS: CEREBRUM: The ventricles are normal for age. No evidence of midline shift, mass lesion, hemorrhage or acute in farction. No extra-axial fluid collections are seen. POSTERIOR FOSSA: The cerebellum and brainstem are intact. The 4th ventricle is midline. The cerebellopontine angle i s unremarkable. EXTRACRANIAL: The visualized portion of the orbits is intact. SKULL: The calvaria is intact. No evidence of skull fracture. CONCLUSION: No acute disease. Ramón Black MD on November 11, 2017 at 6:11 Board Certified Radiologist. This report was verified electronically.
[2017-11-11] MEDS ORDERED: IBUPROFEN 600 MG TAB PO ONE (06:30)
[2017-11-11 06:37] VITALS: BP 140/62; PULSE 86; RESP 18; O2SAT 99
== END 2017-11-11 06:55 ==
LOC: PHED 04:53
DX: S09.90XA Unspecified injury of head, initial encounter (principal); S40.011A Contusion of right shoulder, initial encounter; S39.012A Strain of muscle, fascia and tendon of lower back, initial encounter; G40.909 Epilepsy, unspecified, not intractable, without status epilepticus; W19.XXXA Unspecified fall, initial encounter; W22.8XXA Striking against or struck by other objects, initial encounter; Y35.93XA Legal intervention, means unspecified, suspect injured, initial encounter; Z79.899 Other long term (current) drug therapy
CPT/HCPCS: 70450; 72100; 73030; 99284